=== PATIENT | female | born 1980 | race Caucasian/White ===

== ENCOUNTER 2018-02-23 15:02 | Emergency (ER) | payer OTHER ==
--- NOTE | 2018-02-23 16:30 | EDPHY ---
H & P Smoking Status: Never smoked Time Seen by Provider: 02/23/18 15:32 HPI/ROS: CHIEF COMPLAINT: Left leg pain HISTORY OF PRESENT ILLNESS: 37-year-old female presents to the emergency department visiting from the [facility]. She is concerned that she has recurring DVT in her left leg. She traveled from [place] approximately 3 weeks ago. She complains of pressure sensation in her left leg. Denies any known trauma or injury. She states that she has a history of PTSD and is very concerned about possible recurring DVT. She denies pleuritic chest pain. Does not feel short of breath. No other chest pain. No neck or back pain. REVIEW OF SYSTEMS: Constitutional: No fever, no chills. Eyes: No double or blurry vision. ENT: No sore throat. Respiratory: No cough, no shortness of breath. Cardiac: No chest pain. Gastrointestinal: No abdominal pain, vomiting or diarrhea. Genitourinary: No dysuria. Musculoskeletal: No neck or back pain. Skin: No rashes. Neurological: No headache. (Lady Sanchez) Past Medical/Surgical History: PTSD, DVT, varicose vein surgery (Lady Sanchez) Social History: , visiting from the [facility] (Lady Sanchez M) Physical Exam: General Appearance: Alert, no distress. Eyes: Pupils equal and round. Extraocular motions are all intact. ENT: Mouth: Mucous membranes moist. Respiratory: No wheezing, rhonchi, or rales, lungs are clear to auscultation. Cardiovascular: Regular rate and rhythm. Gastrointestinal: Abdomen is soft and nontender, no masses, no rebound or guarding, bowel sounds normal. Neurological: Alert and oriented x 3, cranial nerves II through XII grossly intact Skin: Warm and dry, no rashes. Musculoskeletal: Nontender to palpate along the cervical, thoracic or lumbar spine. Neck is supple. Extremities: Full range of motion and no peripheral edema. Nontender to palpate the left calf. No obvious swelling in the left calf compared to the right. Skin is warm and dry. Palpable dorsalis pedis pulses felt bilaterally. Psychiatric: Patient is oriented X 3, there is no agitation. (Lady Sanchez) Constitutional: Initial Vital Signs Temperature (C) 36.7 C 02/23/18 15:06 Heart Rate 86 02/23/18 15:06 Respiratory Rate 18 02/23/18 15:06 Blood Pressure 151/92 H 02/23/18 15:06 O2 Sat (%) 95 02/23/18 15:06 O2 Delivery Mode Room Air Allergies/Adverse Reactions: No Known Allergies Allergy (Unverified 02/23/18 15:05) Home Medications: Medication Instructions Recorded NK [No Known Home Meds] 02/23/18 Medical Decision Making - Diagnostics Imaging: Discussed imaging studies w/ house calls nurse Radiologist ED Course/Re-evaluation: 37-year-old female presents to the emergency department concerned about recurring DVT in her left leg. Ultrasound was obtained which revealed no evidence of superficial or deep vein thrombosis. Patient was reassured. She was given primary care referral since she will be here for several more weeks. She was encouraged to return to the emergency department if she developed persisting calf pain or if she developed swelling or if she felt worse in any way. She was comfortable with this plan. (Lady Sanchez) Differential Diagnosis: Including but not limited to DVT, superficial thrombophlebitis, pulmonary embolism, muscular strain, muscular spasm (Lady Sanchez) Other Provider: The patient was evaluated and managed by the Physician Sofa Back Upholsterer. I discussed the patient's presentation and course with the physician city carrier assistant and agree with the evaluation. My co-signature indicates that I have reviewed this chart and I agree with the findings and plan of care as documented. I am the secondary supervising physician. (Demetria Sung) Departure - Departure Disposition: Home, Routine, Self-Care Clinical Impression: Left leg pain Condition: Good Instructions: Leg Pain (ED) Additional Instructions: You have no evidence of DVT on your ultrasound of your left leg today. Please return to the emergency department or follow up with a primary care provider in 1-2 weeks if your symptoms do not completely resolve or sooner if you feel worse in any way. Referrals: Nikky Barreto MD [[facility] Primary Care Provider] - 5-7 days, if not improved ( Primary care provider wholesale agronomist)
[2018-02-23 17:22] VITALS: BP 133/82
== END 2018-02-23 16:50 | disposition home or self-care (01) ==
DX: M79.605 Pain in left leg (principal)

== ENCOUNTER 2018-03-10 14:01 | Emergency (ER) | payer SELFPAY ==
--- NOTE | 2018-03-10 14:55 | EDPHY ---
H & P Stated Complaint: left flank pain Time Seen by Provider: 03/10/18 14:55 HPI/ROS: CHIEF COMPLAINT: Left sacroiliac pain HISTORY OF PRESENT ILLNESS: The patient presents to the ED with a 1 day history of acute severe left sacroiliac pain. The patient reports she has a history of milder intermittent pain in the past. The patient denies any acute numbness or weakness in her legs. She is having pain that interferes with her ability to walk. The pain is worsened with movement and axial rotation. The patient denies any abdominal pain, nausea, vomiting or diarrhea. She denies any history of fall or trauma. She denies any history of fever. She denies prior history of back injury or surgery. REVIEW OF SYSTEMS: A comprehensive 10 point review of systems is otherwise negative aside from elements mentioned in the history of present illness. Source: Patient Exam Limitations: No limitations - Personal History LMP (Females 10-55): 22-28 Days Ago Current Tetanus/Diphtheria Vaccine: Yes Current Tetanus Diphtheria and Acellular Pertussis (TDAP): Yes - Medical/Surgical History Hx Asthma: Yes Hx Chronic Respiratory Disease: No Hx Diabetes: No Hx Cardiac Disease: No Hx Renal Disease: No Hx Cirrhosis: No Hx Alcoholism: No Hx HIV/AIDS: No Hx Splenectomy or Spleen Trauma: No Other PMH: PTSD - Social History Smoking Status: Never smoked - Physical Exam Exam: General Appearance: Alert, mild discomfort secondary to pain Eyes: Pupils equal and round no pallor or injection ENT, Mouth: Mucous membranes moist Respiratory: There are no retractions, lungs are clear to auscultation Cardiovascular: Regular rate and rhythm Gastrointestinal: Abdomen is soft and nontender, no masses, bowel sounds normal Neurological: Difficult to examine secondary to the patient's reported pain, she appears to have intact motor strength bilaterally in the lower extremities. She denies saddle anesthesia. Skin: Warm and dry, no rashes Musculoskeletal: Left sacroiliac pain Extremities: symmetrical, full range of motion Constitutional: Initial Vital Signs Temperature (C) 37.2 C 03/10/18 14:05 Heart Rate 67 03/10/18 14:05 Respiratory Rate 18 03/10/18 14:05 Blood Pressure 122/75 H 03/10/18 14:05 O2 Sat (%) 97 03/10/18 14:05 O2 Delivery Mode Room Air Allergies/Adverse Reactions: No Known Allergies Allergy (Unverified 02/23/18 15:05) Home Medications: Medication Instructions Recorded Cbd Oil 03/10/18 Cyclobenzaprine [Flexeril 10 MG 10 mg PO TID PRN #15 tab 03/10/18 (*)] Diclofenac Sodium [Voltaren 75 MG 75 mg PO BID #60 tab 03/10/18 (*)] Lidocaine [Lidoderm] 1 each TP AD PRN #15 adh..patch 03/10/18 Medical Decision Making - Diagnostics Imaging Results: Imaging Impressions Lumbar Spine X-Ray 03/10/18 16:37 Impression: Nothing acute identified. Degenerative disk disease between L3 and L5. ED Course/Re-evaluation: The patient presents the ED with complaints of back pain. She initially told me it was acute pain however story seems to be changing in the emergency department. She states she has been having 2 months of symptoms. She has no radicular symptoms. The patient had x-rays which demonstrate only mild DJD. She received an injection of IV Dilaudid, Valium and was given ibuprofen and Tylenol. I re-evaluated the patient at 6:30 p.m.. She is sitting up in bed. She appears to be in no acute distress. I do feel the patient can be discharged home. She will be given a prescription for Flexeril, diclofenac and lidocaine patches. The patient has been given the contact number of our neuro surgical service. The patient has had a somewhat odd presentation surrounding her request for pain medication. I am somewhat suspicious about the possibility of drug- seeking behavior. She will not be given a prescription for narcotics. The patient will be referred to a back pain specialist for further evaluation. The patient was in the emergency department for 6 hr. She was ambulatory. I appreciated no neurovascular abnormalities. The patient was quite strange in her concerns regarding narcotic medications and wanting "guarantees" that her back developed acute pain again. Differential Diagnosis: Differential diagnosis considered includes myofascial strain, sacroiliitis, lumbar disc herniation - Data Points Laboratory Results: Laboratory Results 03/10/18 14:00 03/10/18 14:00 03/10/18 03/10/18 03/10/18 17:12 14:00 14:00 WBC RBC Hgb Hct MCV MCH MCHC RDW Plt Count MPV Neut % (Auto) Lymph % (Auto) Branch % (Auto) Eos % (Auto) Baso % (Auto) Nucleat RBC Rel Count Absolute Neuts (auto) Absolute Lymphs (auto) Absolute Monos (auto) Absolute Eos (auto) Absolute Basos (auto) Absolute Nucleated RBC Immature Gran % Immature Gran # Sodium 140 mEq/L mEq/L (135-145) Potassium 3.7 mEq/L mEq/L (3.3-5.0) Chloride 107 mEq/L mEq/L (97-110) Carbon Dioxide 20 mEq/l L mEq/l (22-31) Anion Gap 13 mEq/L mEq/L (8-16) BUN 7 mg/dL mg/dL (7-23) Creatinine 0.5 mg/dL L mg/dL (0.6-1.0) Estimated GFR > 60 Glucose 92 mg/dL mg/dL (70-100) Calcium 8.9 mg/dL mg/dL (8.5-10.4) Beta HCG, Qual NEGATIVE Urine Color PALE YELLOW Urine Appearance CLEAR Urine pH 7.0 (5.0-7.5) Ur Specific [place]stock 1.005 (1.002-1.030) Urine Protein NEGATIVE (NEGATIVE) Urine Ketones NEGATIVE (NEGATIVE) Urine Blood NEGATIVE (NEGATIVE) Urine Nitrate NEGATIVE (NEGATIVE) Urine Bilirubin NEGATIVE (NEGATIVE) Urine Urobilinogen NEGATIVE EU EU (0.2-1.0) Ur Leukocyte Esterase NEGATIVE (NEGATIVE) Urine Glucose NEGATIVE (NEGATIVE) 03/10/18 14:00 WBC 4.09 10^3/uL 10^3/uL (3.80-9.50) RBC 4.66 10^6/uL 10^6/uL (4.18-5.33) Hgb 14.3 g/dL g/dL (12.6-16.3) Hct 43.6 % % (38.0-47.0) MCV 93.6 fL fL (81.5-99.8) MCH 30.7 pg pg (27.9-34.1) MCHC 32.8 g/dL g/dL (32.4-36.7) RDW 12.7 % % (11.5-15.2) Plt Count 221 10^3/uL 10^3/uL (150-400) MPV 10.6 fL fL (8.7-11.7) Neut % (Auto) 49.5 % % (39.3-74.2) Lymph % (Auto) 40.8 % % (15.0-45.0) Branch % (Auto) 8.8 % % (4.5-13.0) Eos % (Auto) 0.2 % L % (0.6-7.6) Baso % (Auto) 0.5 % % (0.3-1.7) Nucleat RBC Rel Count 0.0 % % (0.0-0.2) Absolute Neuts (auto) 2.02 10^3/uL 10^3/uL (1.70-6.50) Absolute Lymphs (auto) 1.67 10^3/uL 10^3/uL (1.00-3.00) Absolute Monos (auto) 0.36 10^3/uL 10^3/uL (0.30-0.80) Absolute Eos (auto) 0.01 10^3/uL L 10^3/uL (0.03-0.40) Absolute Basos (auto) 0.02 10^3/uL 10^3/uL (0.02-0.10) Absolute Nucleated RBC 0.00 10^3/uL 10^3/uL (0-0.01) Immature Gran % 0.2 % % (0.0-1.1) Immature Gran # 0.01 10^3/uL 10^3/uL (0.00-0.10) Sodium Potassium Chloride Carbon Dioxide Anion Gap BUN Creatinine Estimated GFR Glucose Calcium Beta HCG, Qual Urine Color Urine Appearance Urine pH Ur Specific Comstock Urine Protein Urine Ketones Urine Blood Urine Nitrate Urine Bilirubin Urine Urobilinogen Ur Leukocyte Esterase Urine Glucose Medications Given: Discontinued Medications Acetaminophen (Tylenol) 1,000 mg PO EDNOW ONE Stop: 03/10/18 15:03 Last Admin: 03/10/18 15:26 Dose: 1,000 mg Diazepam (Valium) 5 mg PO EDNOW ONE Stop: 03/10/18 15:03 Last Admin: 03/10/18 15:28 Dose: Not Given Diazepam (Valium) 5 mg IVP EDNOW ONE Stop: 03/10/18 15:25 Last Admin: 03/10/18 15:27 Dose: 5 mg Hydromorphone HCl (Dilaudid) 1 mg IVP EDNOW ONE Stop: 03/10/18 16:08 Last Admin: 03/10/18 16:14 Dose: 1 mg Ibuprofen (Motrin) 600 mg PO EDNOW ONE Stop: 03/10/18 15:03 Last Admin: 03/10/18 15:27 Dose: 600 mg Miscellaneous Medication (Icy Hot Lidocaine/Menthol 4%/1% Patch) 1 patch TD EDNOW ONE Stop: 03/10/18 15:03 Last Admin: 03/10/18 15:33 Dose: 1 patch Departure - Departure Disposition: Home, Routine, Self-Care Clinical Impression: Lumbar strain Condition: Good Instructions: Low Back Strain (ED) Additional Instructions: 1. Diclofenac for pain. 2. Flexeril as needed for muscle spasm. 3. Lidocaine patches as prescribed. 4. Please follow up with the back pain specialist you have been referred to for further evaluation of your condition. Referrals: Piero López MD [Medical Doctor] - As per Instructions Prescriptions: Cyclobenzaprine [Flexeril 10 MG (*)] 10 mg PO TID PRN #15 tab PRN Reason: Spasms Diclofenac Sodium [Voltaren 75 MG (*)] 75 mg PO BID #60 tab Lidocaine [Lidoderm] 1 each TP AD PRN #15 adh..patch PRN Reason: Pain, Breakthrough
[2018-03-10] MEDS ORDERED: DIAZEPAM 5 MG TAB PO ONE (15:02)
[2018-03-10] MEDS ORDERED: IBUPROFEN 600 MG TAB PO ONE (15:02)
[2018-03-10] MEDS ORDERED: ACETAMINOPHEN 500 MG TAB PO ONE (15:02)
[2018-03-10] MEDS ORDERED: LIDOCAINE 4%/MENTHOL 1% PATCH TD ONE (15:02)
[2018-03-10 15:03] LABS: PLATELET COUNT 221 10^3/uL (150-400)
[2018-03-10] MEDS ORDERED: DIAZEPAM 5 MG/ML 1 ML SYR IVP ONE (15:24)
[2018-03-10] MEDS ORDERED: HYDROmorphONE/DILAUDID 2 MG/ML INJ IVP ONE (16:07)
[2018-03-10] MEDS ORDERED: HYDROmorphONE/DILAUDID 1 MG/ML INJ ONE (16:10)
[2018-03-10 19:39] VITALS: BP 147/83
[2018-03-10] MEDS ORDERED: PATCH REMOVAL 1 EA PATCH TD SCH (21:00)
== END 2018-03-10 20:43 | disposition home or self-care (01) ==
LOC: EDUNIT#
DX: S39.012A Strain of muscle, fascia and tendon of lower back, initial encounter (principal); J45.909 Unspecified asthma, uncomplicated; X58.XXXA Exposure to other specified factors, initial encounter
CPT/HCPCS: 96374; J1170; J3360

== ENCOUNTER 2018-12-09 17:30 | Emergency (ER) | payer OTHER ==
--- NOTE | 2018-12-09 18:21 | EDPHY ---
H & P Stated Complaint: RUE swelling Time Seen by Provider: 12/09/18 18:18 HPI/ROS: Chief complaint: Swelling over right elbow traumatic injury repair site History of present illness: This is a 38-year-old female who presents to the emergency department for swelling over her right elbow at the site of a surgical repair of a right radial head fracture that occurred 16 years ago. She states she was sitting physical therapist today who knows the swelling and recommended she come to the emergency room for orthopedic evaluation. She states the area is mildly sore but is often sore. She denies new trauma. She denies fevers. She denies redness or red streaking. She can still move the elbow well without discomfort. - Personal History LMP (Females 10-55): 1-7 Days Ago Current Tetanus/Diphtheria Vaccine: Unsure - Medical/Surgical History Hx Asthma: Yes Hx Chronic Respiratory Disease: No Hx Diabetes: No Hx Cardiac Disease: No Hx Renal Disease: No Hx Cirrhosis: No Hx Alcoholism: No Hx HIV/AIDS: No Hx Splenectomy or Spleen Trauma: No Other PMH: PTSD - Social History Smoking Status: Never smoked - Physical Exam Exam: General: Alert, nontoxic. Skin: There is trace amount edema right over the radial head. I can feel what appears to be surgical hardware underneath. The rest of the elbow is unremarkable without erythema or edema. Musculoskeletal: Other than the small area of edema where there is mild amount tenderness the rest the elbow is nontender. She is moving the elbow without difficulty including flexing and extending as well as rotating the forearm without any difficulty or discomfort. Vascular: Radial pulse 2 +. Neurologic: Sensation intact throughout the right upper extremity. Constitutional: Initial Vital Signs Temperature (C) 36.6 C 12/09/18 17:35 Heart Rate 73 12/09/18 17:35 Respiratory Rate 18 12/09/18 17:35 Blood Pressure 129/83 H 12/09/18 17:35 O2 Sat (%) 95 12/09/18 17:35 O2 Delivery Mode Room Air Allergies/Adverse Reactions: No Known Allergies Allergy (Unverified 12/09/18 17:38) Home Medications: Medication Instructions Recorded Cbd Oil 03/10/18 Cyclobenzaprine [Flexeril 10 MG 10 mg PO TID PRN #15 tab 03/10/18 (*)] Diclofenac Sodium [Voltaren 75 MG 75 mg PO BID #60 tab 03/10/18 (*)] Lidocaine [Lidoderm] 1 each TP AD PRN #15 adh..patch 03/10/18 Medical Decision Making - Diagnostics Imaging Results: Imaging Impressions Elbow X-Ray 12/09/18 17:40 Impression: Negative for acute osseous abnormality. Postoperative changes are seen, and there is a possible joint effusion. Imaging: I viewed and interpreted images myself ED Course/Re-evaluation: Patient is discussed with my secondary supervising physician Dr. Anil Cannon. Patient presents for mild discomfort and swelling over her right radial head where she had a remote surgical procedure to repair a fracture. The elbow joint itself appears unremarkable. The right upper extremity is neurovascularly intact. She does have good musculoskeletal control. I believe she is appropriate for discharge home. She is referred to orthopedics for further evaluation and care. Return precautions are given. Patient voiced understanding and agreement with plan. Differential Diagnosis: Included but not limited to hardware failure, new trauma including contusion, sprain or strain, fracture, doubtful infectious pathology Departure - Departure Disposition: Home, Routine, Self-Care Clinical Impression: Elbow pain, right Condition: Good Instructions: Arm Pain (ED) Additional Instructions: Please call tomorrow and arrange a follow-up appointment with orthopedics for continued evaluation and care If symptoms worsen or new symptoms develop return to the emergency room for recheck Referrals: Cali Ballesteros MD [Medical Doctor] - As per Instructions Dakotah Hays MD [Medical Doctor] - As per Instructions Megan Liao MD [Medical Doctor] - As per Instructions
[2018-12-09 19:14] VITALS: BP 127/78
== END 2018-12-09 19:08 | disposition home or self-care (01) ==
DX: M25.521 Pain in right elbow (principal); M79.89 Other specified soft tissue disorders